=== PATIENT | female | born 1980 ===

== ENCOUNTER 2017-01-21 15:57 | Emergency (ER) | payer OTHER ==
[2017-01-21 16:07] VITALS: BP 120/81; TEMP 98.3
--- NOTE | 2017-01-21 16:14 | C.PDOC ---
History Of Present Illness 36 yo female c/o bug bite to her right leg for the last 3 hours. She notes that her office was told there are bed bugs and it will be fumigated. No known allergens. No difficulty breathing. No difficulty swallowing. No h/o similar symptoms. Time Seen by Provider: 01/21/17 16:08 Chief Complaint (Nursing): Abnormal Skin Integrity History Per: Patient History/Exam Limitations: no limitations Onset/Duration Of Symptoms: Hrs (3) Current Symptoms Are (Timing): Still Present Location Of Injury: Right: Leg Recent travel outside of the [place]: No Additional History Per: Patient Past Medical History Reviewed: Historical Data, Nursing Documentation, Vital Signs Vital Signs: Last Vital Signs Temp 98.3 F 01/21/17 16:00 Pulse 91 H 01/21/17 16:31 Resp 17 01/21/17 16:31 BP 120/81 01/21/17 16:00 Pulse Ox 100 01/21/17 17:39 - Medical History PMH: Asthma (WITH EXERCISE) Family History: States: No Known Family Hx - Social History Hx Alcohol Use: Yes Hx Substance Use: No Review Of Systems Except As Marked, All Systems Reviewed And Found Negative. Constitutional: Negative for: Fever, Chills ENT: Negative for: Throat Pain Respiratory: Negative for: Shortness of Breath Musculoskeletal: Negative for: Leg Pain Skin: Positive for: Rash (bug bite to right leg) Neurological: Negative for: Weakness, Numbness Physical Exam - Physical Exam Appears: Non-toxic, No Acute Distress Skin: Warm, Dry, Rash ((+) three <0.5 cm erythematous papules, no surrounding erythema or warmth, no discharge, no vesicles) Head: Atraumatic, Normacephalic Eye(s): bilateral: Normal Inspection, EOMI Nose: Normal Oral Mucosa: Moist Throat: Normal, No Erythema, No Exudate Neck: Normal ROM, Supple Chest: Symmetrical Cardiovascular: Rhythm Regular Respiratory: Normal Breath Sounds Back: Normal Inspection Extremity: Normal ROM, No Tenderness, Capillary Refill (<2 sec.), No Deformity, No Swelling (no swelling to right leg) Extremity: Bilateral: Atraumatic Pulses: Left Dorsalis Pedis: Normal, Right Dorsalis Pedis: Normal Neurological/Psych: Oriented x3, Normal Speech, Normal Motor, Normal Sensation ED Course And Treatment O2 Sat by Pulse Oximetry: 100 (on RA) Pulse Ox Interpretation: Normal Progress Note: Pt is being discharged home, and is instructed to follow up with PMD in 1-2 days. Pt is instructed to watch for signs of infection including redness, swelling and fever. Also, to watch for allergic reaction including difficulty breathing, difficulty swallowing and spreading of the rash, and return to ED if symptoms worsen. Disposition - Disposition Disposition: HOME/ ROUTINE Disposition Time: 16:12 Condition: STABLE Additional Instructions: Watch for signs of infection including redness, swelling and fever. Watch for allergic reaction including difficulty breathing, difficulty swallowing and spreading of the rash. Return to ER if symptoms persist or worsen. Prescriptions: DiphenhydrAMINE [Benadryl] 25 mg PO Q6 #20 cap Hydrocortisone 1% Cream [Cortizone 1% Cream] 1 appl TP TID #1 tube Instructions: Insect Bite or Sting (ED) Forms: [employer] (Armenian), Work Excuse - Clinical Impression Clinical Impression: Bug bites - PA / REGISTRY NP / Resident Statement MD/DO has reviewed & agrees with the documentation as recorded. - Scribe Statement The provider has reviewed the documentation as recorded by the Scribe Gavino Parks All medical record entries made by the Rashaad were at my direction and personally dictated by me. I have reviewed the chart and agree that the record accurately reflects my personal performance of the history, physical exam, medical decision making, and the department course for this patient. I have also personally directed, reviewed, and agree with the discharge instructions and disposition.
[2017-01-21 16:34] VITALS: PULSE 91; RESP 17
[2017-01-21 17:02] VITALS: O2SAT 100
== END 2017-01-21 16:38 | disposition home or self-care (01) ==
LOC: C.ER 15:57
DX: S80.861A Insect bite (nonvenomous), right lower leg, initial encounter (principal); W57.XXXA Bitten or stung by nonvenomous insect and other nonvenomous arthropods, initial encounter; Y93.89 Activity, other specified; Y92.89 Other specified places as the place of occurrence of the external cause